=== PATIENT | male | born 1995 | race Caucasian/White ===

== ENCOUNTER 2018-09-05 16:55 | Emergency (ER) | payer OTHER ==
[~2018-09-05] VITALS: Ht 172.7 cm; Wt 61.2 kg
[2018-09-05 17:25] LABS: *BILIRUBIN,URIN NEGATIVE (NEGATIVE); *BLOOD, URINE NEGATIVE (NEGATIVE); *CLARITY,URINE CLEAR (CLEAR); *COLOR,URINE YELLOW (YELLOW); *KETONES,URINE NEGATIVE (NEGATIVE); *UROBILINOGEN,URINE 0.2 E.U./dl (NORMAL); LEUKOCYTE ESTERASE ,URINE NEGATIVE (NEGATIVE); NITRITE, URINE NEGATIVE (NEGATIVE); UGLUCOSE NEGATIVE (NEGATIVE)
--- NOTE | 2018-09-05 17:30 | NUR ---
DAJUAN OLMOS AT BEDSIDE FOR MSE.
[2018-09-05] MEDS ORDERED: CEFTRIAXONE 500 MG VIAL IM ONE (17:45)
[2018-09-05] MEDS ORDERED: AZITHROMYCIN 250 MG TABLET PO ONE (17:45)
[2018-09-05] MEDS ORDERED: LIDOCAINE HCL 1% 20 ML VIAL ONE (17:46)
[2018-09-05] MEDS ORDERED: AZITHROMYCIN 250 MG TABLET ONE (17:47)
[2018-09-05] MEDS ORDERED: CEFTRIAXONE 500 MG VIAL ONE (17:47)
--- NOTE | 2018-09-05 17:54 | NUR ---
Patient discharged to home in stable conditon. Written and verbal after care instructions given. Patient verbalizes understanding of instructions. PT D/C W/ PRESCRIPTION. ALL BELONGINGS W/ PT. PT SELF-AMBULATED W/O DIFFICULTY.
[2018-09-05 17:56] VITALS: BP 121/72
[2018-09-10 06:06] LABS: *GC NAA Negative (Negative); *TRIC.VAG. NAA Positive (Negative)
== END 2018-09-05 17:57 | disposition home or self-care (01) ==
LOC: ER 16:58
DX: A64 Unspecified sexually transmitted disease (principal)
CPT/HCPCS: 81001; 87491; 96372; 99283; J0696; J3490; A4663; Q0144

== ENCOUNTER 2018-09-08 13:12 | Emergency (ER) | payer OTHER ==
[~2018-09-08] VITALS: Ht 172.7 cm; Wt 61.2 kg
[2018-09-08] MEDS ORDERED: ONDANSETRON ODT 4 MG TAB.RAPDIS SL ONE (13:45)
[2018-09-08 13:53] LABS: BASOPHILS # (AUTO) 0.1 K/uL (0.0-8.0); EOSINOPHILS # (AUTO) 0.2 K/uL (0.0-0.7); EOSINOPHILS % (AUTO) 2.9 % (0.0-7.0); HEMATOCRIT 45.6 % (36.7-47.1); HEMOGLOBIN 15.3 g/dL (12.5-16.3); LYMPHOCYTES # (AUTO) 1.8 K/uL (20.0-40.0); MEAN CORPUSCULAR HEMOGLOBIN 29.7 uug (23.8-33.4); MEAN CORPUSCULAR HGB CONC 34 g/dL (32.5-36.3); MEAN CORPUSCULAR VOLUME 88.6 fL (73.0-96.2); MONOCYTES # (AUTO) 0.4 K/uL (2.0-10.0); MONOCYTES % (AUTO) 6.5 % (0.0-11.0); NEUTROPHILS # (AUTO) 3.6 K/uL (1.8-8.9); NEUTROPHILS % (AUTO) 59.6 % (38.5-71.5); PLATELET COUNT (AUTO) 175 K/uL (152-348); RED BLOOD CELL COUNT(AUTO) 5.15 MIL/uL (4.06-5.63)
[2018-09-08] MEDS ORDERED: ONDANSETRON ODT 4 MG TAB.RAPDIS ONE (13:53)
[2018-09-08 13:58] LABS: CREATININE 1.2 mg/dL (0.6-1.3); POTASSIUM 4.1 mmol/L (3.5-5.1)
[2018-09-08 14:04] LABS: BILIRUBIN,TOTAL 0.7 mg/dL (0.2-1.0); TOTAL PROTEIN, SERUM 6.7 g/dL (6.4-8.2)
[2018-09-08 14:29] LABS: *BILIRUBIN,URIN NEGATIVE (NEGATIVE); *BLOOD, URINE NEGATIVE (NEGATIVE); *CLARITY,URINE CLEAR (CLEAR); *COLOR,URINE YELLOW (YELLOW); *KETONES,URINE NEGATIVE (NEGATIVE); *UROBILINOGEN,URINE 0.2 E.U./dl (NORMAL); LEUKOCYTE ESTERASE ,URINE TRACE (NEGATIVE); NITRITE, URINE NEGATIVE (NEGATIVE); UGLUCOSE NEGATIVE (NEGATIVE)
[2018-09-08 14:36] LABS: MUCUS,URINE MODERATE /LPF (0-FEW); RBC,URINE 0-3 /HPF (0-3)
--- NOTE | 2018-09-08 15:19 | NUR ---
PT WAS EVALUATED BY DR MARINELLI. PT WAS D/C TO HOME. D/C INSTRUCTIONS GIVEN TO THE PT.
[2018-09-08 15:20] VITALS: BP 132/75
== END 2018-09-08 15:23 | disposition home or self-care (01) ==
LOC: ER 13:14
DX: N39.0 Urinary tract infection, site not specified (principal); R11.2 Nausea with vomiting, unspecified
CPT/HCPCS: 36415; 83690; 85025; 87086; A4663; Q0162